=== PATIENT | male | born 1935 | race Caucasian/White ===

== ENCOUNTER → 2019-05-13 | Outpatient (CLI) | payer OTHER | END | disposition home or self-care (01) | LOC: RADMRIMAIN 14:39 | PROVIDERS: ATTEND Physician Assistant | DX: Z53.9 Procedure and treatment not carried out, unspecified reason (principal) ==

== ENCOUNTER → 2019-08-27 | Outpatient (CLI) | payer OTHER ==
--- NOTE | 2019-08-27 14:35 | BD ---
EXAMINATION TYPE: Axial Bone Density DATE OF EXAM: 08/27/2019 COMPARISON: NONE CLINICAL HISTORY: 83-year-old male R93.7, abnormal findings on diagnostic imaging Nuclear Medicine Study in the last 2 weeks: NO Barium Study in the last week: NO : NO Height: 5 FT 10 1/2 IN Weight: 230 FRAX RISK QUESTIONS: Alcohol (3 or more units per day): NO Family History (Parent hip fracture): NO Glucocorticoids (More than 3mos): NO (Ex: prednisone, prednisolone, methylprednisolone, dexamethasone, and hydrocortisone). History of Fracture in Adulthood: NO Secondary Osteoporosis: 1. Type 1 Diabetes: NO 2. Hyperthyroidism: NO 3. Menopause before 45: NA 4. Malnutrition: NO 5. Chronic liver disease: NO Rheumatoid Arthritis: NO Current Tobacco Use: YES RISK FACTORS HISTORY OF: Active: YES MEDICATIONS: Additional Medications: BLOOD PRESSURE MEDS, Additional History: EXAM MEASUREMENTS: Bone mineral densitometry was performed using the [email or web address] System. Bone mineral density as measured about the Lumbar spine is: ----- L1-L4(G/cm2): 1.391 T Score Values are as follows: ----- L2: 0.1 ----- L3: 1.1 ----- L4: 3.9 ----- L1-L4: 1.8 BASELINE Bone mineral density about the R hip (g/cm2): 0.907 Bone mineral density about the L hip (g/cm2): 0.804 T Score values are as follows: -----R Neck: -0.9 -----L Neck: -1.7 -----R Total: -0.5 -----L Total: -0.8 BASELINE IMPRESSION: Osteopenia (T Score between -2.5 and -1). There is slightly increased risk of fracture and the patient may be considered for treatment. Re-Screen 2-5 years. NOTE: T-SCORE=SD OF THE YOUNG ADULT MEAN.
== END | disposition home or self-care (01) ==
LOC: RADBDWWP 10:30
DX: M81.8 Other osteoporosis without current pathological fracture (principal); Z13.820 Encounter for screening for osteoporosis
CPT/HCPCS: 77080

== ENCOUNTER → 2019-09-29 | Outpatient (CLI) | payer OTHER ==
[2019-09-29 16:38] LABS: African American GFR (CKD) >90 (>60 ml/min/1.73 sqM); Blood Urea Nitrogen 12 mg/dL (9-20); Non-African American GFR(CKD) 84 (>60 ml/min/1.73 sqM)
--- NOTE | 2019-09-30 07:38 | CT ---
CT adrenal glands with and without contrast HISTORY: Abnormal findings on diagnostic imaging left adrenal gland. Helical acquisition obtained pre and postcontrast through the adrenal glands, patient received 100 cc Isovue-300 IV, oral contrast. Automated exposure control for dose reduction. DLP 2553 mGycm No comparison supplied. The patient shows a left adrenal mass measuring approximately 2 cm in diameter. Hounsfield unit measu rements is 15 on precontrast imaging. Postcontrast images show on portal venous phase Hounsfield unit measurement 58. On delayed imaging Hounsfield measurement is 22. Absolute washout is calculated at g reater than 60%. Relative washout calculated at greater than 40%. Left kidney shows low dense lesion measuring approximately 19 mm at the mid pole posteriorly, probabl e cortical cyst in exophytic location lower polee. Cortical cysts are associated with the right kidne y. Right adrenal gland is normal. Liver shows low attenuation. Gallbladder shows no stone. Spleen is unremarkable. Pancreas is within normal limits. There is hyperdense material noted on precontrast imaging within the urinary bladder. Urinary bladder shows thickened wall. Prostate is enlarged and shows associated calcification. No evident adenopathy or ascites. Diverticular changes associated with the sigmoid colon. Retained fecal debris present th roughout much of the colon. The lung bases show no mass, there is no pleural or pericardial effusion.1 there are coronary artery calcifications present.1 mitral annular calcification suspected.e atheromatous change present in the aortoiliac distribution. Spine shows a marked scoliotic curvature, flowing anterior osteophytes in th e visualized spine suggest diffuse idiopathic skeletal hyperostosis. There is facet arthropathy and d egenerative disc change also noted, may be spinal stenosis in the lower lumbar spine. 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 Coronary artery disease. Indeterminate left renal lesion does not make criteria for simp le cyst. There may be bladder stones present. Probable chronic bladder outlet obstruction. Diverticul osis. Spinal stenosis and scoliosis, additional findings above.
== END | disposition home or self-care (01) ==
LOC: RADCTMAIN 15:59
DX: R93.7 Abnormal findings on diagnostic imaging of other parts of musculoskeletal system (principal); I25.10 Atherosclerotic heart disease of native coronary artery without angina pectoris
CPT/HCPCS: 82565; 84520; 36415; 74170; Q9967

== ENCOUNTER 2020-12-08 07:14 | Emergency (ER) | payer MEDICARE, OTHER ==
[2020-12-08 07:23] VITALS: TEMP 98.7
--- NOTE | 2020-12-08 07:50 | ED ---
General Adult HPI - General Chief complaint: Recheck/Abnormal Lab/Rx Stated complaint: Genital Injury Time Seen by Provider: 12/08/20 07:16 Source: patient, EMS, RN notes reviewed, old records reviewed Mode of arrival: EMS Limitations: no limitations - History of Present Illness Initial comments: 85-year-old male presenting for evaluation of urinary retention and dislodged Alexandra catheter. Patient had been sent from the [facility] for evaluation after he had removed his Alexandra catheter and there was an injury to his penis. Patient does have some pain at the tip of his penis. He was afebrile, stable vitals during transport.. This had occurred sometime in the night. - Related Data Allergies Allergy/AdvReac Type Severity Reaction Status Date / Time No Known Allergies Allergy Verified 12/08/20 07:23 Review of Systems ROS Statement: Those systems with pertinent positive or pertinent negative responses have been documented in the HPI. ROS Other: All systems not noted in ROS Statement are negative. Past Medical History Past Medical History: Atrial Fibrillation, Hyperlipidemia, Hypertension, Prostate Disorder Additional Past Medical History / Comment(s): Weakness, History of Any Multi-Drug Resistant Organisms: None Reported Past Surgical History: No Surgical Hx Reported Past Psychological History: No Psychological Hx Reported Smoking Status: Former smoker Past Alcohol Use History: None Reported Past Drug Use History: None Reported General Exam Limitations: no limitations General appearance: alert, in no apparent distress Head exam: Present: atraumatic, normocephalic Eye exam: Present: normal appearance, PERRL ENT exam: Present: normal exam Neck exam: Present: normal inspection. Absent: tenderness, meningismus Respiratory exam: Present: normal lung sounds bilaterally, respiratory distress Cardiovascular Exam: Present: regular rate, normal rhythm GI/Abdominal exam: Present: soft. Absent: distended, tenderness, guarding exam: Present: other (Ventral meatus tear, 0.5 cm) Extremities exam: Present: normal inspection, normal capillary refill Neurological exam: Present: alert. Absent: motor sensory deficit Skin exam: Present: warm, dry, intact. Absent: cyanosis, diaphoretic Course Vital Signs 12/08/20 07:17 Temperature 98.7 F Pulse Rate 70 Respiratory 22 Rate Blood Pressure 142/76 O2 Sat by Pulse 99 Oximetry Medical Decision Making - Medical Decision Making Alexandra catheter was inserted without difficulty. It is freely draining urine. There was minimal blood clot initially but overall urine is clear. I did discuss case with Dr. Ike ghotra for urology, who agrees with discharge and outpatient follow-up at this time. Disposition Clinical Impression: Urinary retention, Irritation of urethral meatus Disposition: HOME SELF-CARE Condition: Fair Instructions (If sedation given, give patient instructions): Alexandra Catheter Placement and Care (ED) Is patient prescribed a controlled substance at d/c from ED?: No Referrals: None,Stated [Primary Care Provider] - 1-2 days Dread Ramires MD [STAFF PHYSICIAN] - 1-2 days Time of Disposition: 07:47
[2020-12-08 08:26] VITALS: BP 113/70; PULSE 92; RESP 20
== END 2020-12-08 08:35 | disposition home or self-care (01) ==
LOC: EC 07:14
DX: R33.9 Retention of urine, unspecified (principal); N36.8 Other specified disorders of urethra; I10 Essential (primary) hypertension; I48.91 Unspecified atrial fibrillation; E78.5 Hyperlipidemia, unspecified; Z87.891 Personal history of nicotine dependence
CPT/HCPCS: 51702; 99283